=== PATIENT | male | born 1990 | race American Indian/Alaskan Native ===

== ENCOUNTER → 2022-02-14 16:45 | Emergency (ER) | payer MEDICAID, OTHER ==
[~2022-02-14 16:45] MED LIST: FOLIC ACID IV ONE; MVI IV ONE; THIAMINE IV ONE; VITAMIN K IV ONE; [UNRECOGNIZED DRUG - OTHER] IV ONE
[2022-03-11 14:56] LABS: CHLORIDE,CL 105 mmol/L (98-107); ESTIMATED GFR 89 mL/min (>=60); SODIUM,NA 144 mmol/L (136-145)
[2022-03-11 14:57] LABS: ACETAMINOPHEN 0 ug/mL (10-30 (Therapeutic))
[2022-03-11 14:58] LABS: PTT,PARTIAL THROMBOPLSTIN TIME 23.3 SEC (22.0-34.0)
[2022-03-11 15:00] LABS: METHAMPHETAMINES,URINE NEGATIVE (NEGATIVE)
[2022-03-11 15:01] LABS: AMPHETAMINES,URINE NEGATIVE (NEGATIVE); BARBITURATES,URINE NEGATIVE (NEGATIVE); BENZODIAZEPINE,URINE NEGATIVE (NEGATIVE); MDMA (ECSTASY), URINE NEGATIVE (NEGATIVE); METHADONE,URINE NEGATIVE (NEGATIVE); OPIATES,URINE NEGATIVE (NEGATIVE); OXYCODONE,URINE NEGATIVE (NEGATIVE); PHENCYCLIDINE,URINE NEGATIVE (NEGATIVE); TCA,URINE NEGATIVE (NEGATIVE)
== END | disposition left against medical advice (07) ==
LOC: DL.ED 16:45 → MERGE 16:45
DX: R45.851 Suicidal ideations (principal); F10.929 Alcohol use, unspecified with intoxication, unspecified
CPT/HCPCS: 36415; 80053; 80143; 80179; 80305; 80307; 81001; 83735; 84443; 85025; 85610; 85730; 87635; 96365; 99284; 99285; J3411; J7120; J3490; U0002

== ENCOUNTER 2022-02-14 22:29 | Emergency (ER) | payer MEDICAID, OTHER | END 2022-02-14 23:48 | LOC: DL.ED 22:29 → MERGE 22:29 → DL.ED 23:48 | DX: F32.A Depression, unspecified (principal); F41.9 Anxiety disorder, unspecified; R45.851 Suicidal ideations | CPT/HCPCS: 99283; 99284 ==

== ENCOUNTER 2022-03-15 10:54 | Emergency (ER) | payer MEDICAID, OTHER ==
[2022-03-15] MEDS ORDERED: Ketorolac 30 MG/ML SDV IM ONE (12:11)
== END 2022-03-15 12:20 | disposition home or self-care (01) ==
LOC: DL.ED 10:54
DX: M79.672 Pain in left foot (principal); Z91.011 Allergy to milk products; Z79.899 Other long term (current) drug therapy
CPT/HCPCS: 73610; 96372; 99283; J1885

== ENCOUNTER 2022-03-27 23:38 | Emergency (ER) | payer OTHER | END 2022-03-28 01:44 | disposition home or self-care (01) | LOC: DL.ED 23:38 | DX: S61.512A Laceration without foreign body of left wrist, initial encounter (principal); F98.9 Unspecified behavioral and emotional disorders with onset usually occurring in childhood and adolescence; F17.210 Nicotine dependence, cigarettes, uncomplicated; Z91.011 Allergy to milk products; Z79.899 Other long term (current) drug therapy; W26.8XXA Contact with other sharp object(s), not elsewhere classified, initial encounter | CPT/HCPCS: 99283 ==